=== PATIENT | male | born 1955 | race Caucasian/White ===

== ENCOUNTER 2022-09-18 14:22 | Outpatient (CLI) | payer MEDICARE | END 2022-09-18 14:23 | disposition home or self-care (01) | LOC: TBSIIMAG 14:22 | PROVIDERS: ATTEND Neurological Surgery | DX: M51.16 Intervertebral disc disorders with radiculopathy, lumbar region (principal); M25.78 Osteophyte, vertebrae; M47.812 Spondylosis without myelopathy or radiculopathy, cervical region | CPT/HCPCS: 72148 ==